=== PATIENT | female | born 1990 | race Caucasian/White ===

== ENCOUNTER 2017-01-22 16:08 | Emergency (ER) | payer OTHER ==
[2017-01-22 16:30] VITALS: BP 107/63
--- NOTE | 2017-01-22 16:44 | UC ---
Complaint Female HPI - HPI Summary HPI Summary: 26 year old female presents with complains of burning with urination, frequent urination and urgency. - History Of Current Complaint Chief Complaint: UCGU Stated Complaint: URINARY Time Seen by Provider: 01/22/17 16:40 Hx Last Menstrual Period: doesn't get - on OCP - Allergies/Home Medications Allergies/Adverse Reactions: Allergies Allergy/AdvReac Type Severity Reaction Status Date / Time No Known Allergies Allergy Verified 01/22/17 16:26 PMH/Surg Hx/FS Hx/Imm Hx - Surgical History Surgical History: None - Family History Known Family History: Positive: Unknown - Social History Alcohol Use: Occasionally Substance Use Type: None Smoking Status (MU): Never Smoked Tobacco Review of Systems Constitutional: Negative Skin: Negative Eyes: Negative ENT: Negative Respiratory: Negative Cardiovascular: Negative Gastrointestinal: Negative Genitourinary: Dysuria, Frequency, Urgency Motor: Negative Neurovascular: Negative Musculoskeletal: Negative Neurological: Negative Psychological: Negative All Other Systems Reviewed And Are Negative: Yes Physical Exam Triage Information Reviewed: Yes Vital Signs: Initial Vital Signs Temp 37.0 C 01/22/17 16:27 Pulse 63 01/22/17 16:27 Resp 16 01/22/17 16:27 BP 107/63 01/22/17 16:27 Pulse Ox 100 01/22/17 16:27 Eye Exam: Normal ENT Exam: Normal Dental Exam: Normal Neck exam: Normal Neck: Positive: 1 Respiratory Exam: Normal Cardiovascular Exam: Normal Abdominal Exam: Normal Musculoskeletal Exam: Normal Neurological Exam: Normal Psychological Exam: Normal Skin Exam: Normal Complaint Female Dx - Differential Dx/Diagnosis Provider Diagnoses: dysuria Discharge - Discharge Plan Condition: Stable Disposition: HOME Prescriptions: Phenazopyridine 200 mg (NF) [Pyridium 200 MG tab] 200 mg PO TID #9 tab Sulfamethox/Trimethoprim DS* [Bactrim DS 800/160 TAB*] 1 tab PO BID #14 tab Patient Education Materials: Urinary Tract Infection in Women (ED) Referrals: LELAND Henson [Primary Care Provider] -
== END 2017-01-22 16:48 | disposition home or self-care (01) ==
LOC: UCCORT 16:08
DX: R30.0 Dysuria (principal)
CPT/HCPCS: 81003; 87086; 99212; G0463

== ENCOUNTER 2017-12-15 17:45 | Emergency (ER) | payer OTHER ==
--- NOTE | 2017-12-15 17:58 | UC ---
Hand/Wrist HPI - HPI Summary HPI Summary: L 4th finger caught in a dog leash, heard it crack. 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 Alleviating Factor(s): Nothing <Rosmery Obando - Last Filed: 12/15/17 18:48> <Itzel Anderson - Last Filed: 12/15/17 18:50> - History Of Current Complaint Stated Complaint: LEFT FINGER INJURY Time Seen by Provider: 12/15/17 17:50 - Allergies/Home Medications Allergies/Adverse Reactions: Allergies Allergy/AdvReac Type Severity Reaction Status Date / Time No Known Allergies Allergy Verified 01/22/17 16:26 PMH/Surg Hx/FS Hx/Imm Hx Previously Healthy: Yes - Surgical History Surgical History: None - Family History Known Family History: Positive: Unknown - Social History Occupation: Employed Full-time Lives: With Family Alcohol Use: Occasionally Substance Use Type: None Smoking Status (MU): Never Smoked Tobacco - Immunization History Vaccination Up to Date: Yes <Rosmery Obando - Last Filed: 12/15/17 18:48> Review of Systems Constitutional: Negative Skin: Negative Eyes: Negative ENT: Negative Respiratory: Negative Cardiovascular: Negative Gastrointestinal: Negative Genitourinary: Negative Motor: Negative Neurovascular: Negative Musculoskeletal: Other: - pain/swelling L 4th finger Neurological: Negative Psychological: Negative Is Patient Immunocompromised?: No All Other Systems Reviewed And Are Negative: Yes <Rosmery Obando - Last Filed: 12/15/17 18:48> Physical Exam Triage Information Reviewed: Yes Appearance: Well-Appearing Eyes: Positive: Conjunctiva Clear ENT: Positive: Normal ENT inspection Neck: Positive: Supple Respiratory: Positive: Lungs clear, Normal breath sounds Cardiovascular: Positive: RRR, No Murmur Abdomen Description: Positive: Nontender, No Organomegaly, Soft Bowel Sounds: Positive: Present Musculoskeletal: Positive: Other: - L hand: 4th finger tender and swollen, s/v intact. refusing to move it due to pain. rest of hand is atraumatic. Neurological: Positive: Alert Psychological: Positive: Age Appropriate Behavior Skin Exam: Normal <Rosmery Obando - Last Filed: 12/15/17 18:48> Vital Signs: Initial Vital Signs Temp 99.9 F 12/15/17 17:52 Pulse 80 12/15/17 17:52 Resp 15 12/15/17 17:52 BP 120/61 12/15/17 17:52 Pulse Ox 100 12/15/17 17:52 <Itzel Anderson - Last Filed: 12/15/17 18:50> Diagnostics - Radiology No standard instances Radiology Interpretation Completed By: Radiologist - comminutes/spiral fx l 4th proximal phalanx <Rosmery Obando - Last Filed: 12/15/17 18:48> Hand/Wrist Course/Dx - Course Course Of Treatment: Procedure: volar fiberglass splint L hand, areas above and below fx immobilized. s/v to finger tips intact post splint. - Differential Dx/Diagnosis Provider Diagnoses: Fracture left 4th proximal phalanx <Rosmery Obando - Last Filed: 12/15/17 18:48> Discharge - Sign-Out/Discharge Documenting (check all that apply): Discharge/Admit/Transfer - Billing Disposition and Condition Condition: STABLE Disposition: HOME <Rosmery Obando - Last Filed: 12/15/17 18:48> - Billing Disposition and Condition Condition: STABLE Disposition: HOME <Itzel Anderson - Last Filed: 12/15/17 18:50> - Discharge Plan Condition: Stable Disposition: HOME Patient Education Materials: Finger Fracture (ED), Splint Care (ED) Referrals: LELAND Henson [Primary Care Provider] - If Needed Anisha Flores MD [Medical Doctor] - As Soon As Possible Additional Instructions: call orthopedics Sunday am. advise you hand been told to see the hand specialist for a comminuted spiral fracture of your finger. keep splint on at all times. Attestation Statement User Type: Provider - I was available for consult. This patient was seen by the EF[facility]. The patient was not presented to, seen by, or examined by me. -Sammie <Itzel Anderson - Last Filed: 12/15/17 18:50>
[2017-12-15 17:59] VITALS: BP 120/61
[2017-12-15] MEDS ORDERED: Ibuprofen ADULT LIQ* 600 MG/30 ML UDC PO ONE (18:03)
--- NOTE | 2017-12-15 18:45 | RAD ---
INDICATION: Pain at the proximal phalanx of the left ring finger after "left ring finger caught in dog leash today" COMPARISON: None. TECHNIQUE: 3 views of the left ring finger were obtained. FINDINGS: There is a comminuted, slightly spiral fracture involving the proximal phalanx of the left ring finger. Remaining visualized bones are intact and appropriately aligned. IMPRESSION: FRACTURED PROXIMAL PHALANX OF THE LEFT RING FINGER.
== END 2017-12-15 18:58 | disposition home or self-care (01) ==
LOC: UCCORT 17:45
DX: S62.615 Displaced fracture of proximal phalanx of left ring finger (principal); W23.0XXA Caught, crushed, jammed, or pinched between moving objects, initial encounter; Y93.9 Activity, unspecified; Y92.9 Unspecified place or not applicable
CPT/HCPCS: 26720; 73140; 99212; A9270-GY; G0463

== ENCOUNTER 2017-12-25 09:14 | Day surgery (SDC) | payer OTHER ==
--- NOTE | 2017-12-21 07:20 | HP ---
PREOPERATIVE HISTORY AND PHYSICAL: DATE OF SURGERY/ADMISSION: 12/25/17 [facility] DATE OF OFFICE VISIT/ENCOUNTER: 12/20/17 ATTENDING SURGEON: Anisha Flores MD * (DICTATED BY KEAGAN AVALOS) PROCEDURE: Left ring finger phalanx closed reduction and percutaneous pinning. CHIEF COMPLAINT: Left ring finger fracture after injury. HISTORY OF PRESENT ILLNESS: This is a 27-year-old female who sustained injury to her left ring finger on 12/15/17. She was walking her dog and got the leash wrapped around her finger and the dog pulled away. She suffered a fracture of her ring finger proximal phalanx. She was seen at [facility] the day of injury and had an x-ray, which shows a displaced fracture of the proximal phalanx. She has not taken any medication for this problem. She denies any associated numbness or tingling and denies any other injury. After evaluation by Dr. Flores and review of x-rays, it has been recommended that she undergo surgical intervention for best outcome and she has consented to proceed with left ring finger closed reduction and percutaneous pinning. PAST MEDICAL HISTORY: Unremarkable. PAST SURGICAL HISTORY: [place] teeth extraction. MEDICATIONS: Loestrin Fe 1 mg-10 mcg/10 mcg one every day. ALLERGIES: No known drug allergies. FAMILY MEDICAL HISTORY: Heart disease and breast cancer. SOCIAL HISTORY: The patient is employed as a real estate investment analyst. She denies smoking and recreational drug use. She does drink alcohol on occasion. REVIEW OF SYSTEMS: General: Negative for fevers, chills, night sweats, unexplained weight loss or gain. No known anesthesia problems. HEENT: Negative for headache, lightheadedness, syncopal episodes, visual changes. Integumentary: Negative for abrasions, lesions, or open wounds. Cardiothoracic : Negative for hypertension, chest pain, palpitations, edema. Respiratory: Negative for shortness of breath with exertion, chronic cough, wheezing. GI: Negative for nausea, vomiting, diarrhea, constipation, GERD. : Negative for nocturia, urinary frequency, urgency, history of UTIs, or kidney problems. Musculoskeletal: Positive for current complaint. Neurological: Negative for paresthesias, numbness, history of seizure, stroke, poor balance. Endocrine: Negative for diabetes and thyroid issues. Hematologic: Negative for easy bruising, anemia, bleeding disorders, or history of DVT. Infectious Disease: Negative for history of MRSA, hepatitis C, or HIV. PHYSICAL EXAMINATION GENERAL: Well-developed, well-nourished 27-year-old female, in no acute distress. VITAL SIGNS: Height 5 feet 5 inches, weight 125 pounds, blood pressure 112/68. HEENT: Normocephalic, atraumatic. Pupils are equal, round, and reactive to light and accommodation. Extraocular movements are intact. Throat is clear. NECK: Supple. No palpable lymph nodes. PULMONARY: Lungs are clear to auscultation bilaterally. No wheezes, rales, or rhonchi. CARDIOVASCULAR: Regular rate and rhythm. S1, S2. No murmurs, rubs, or gallops. No edema. ABDOMEN: Positive bowel sounds, soft, nontender. NEUROLOGICAL: Alert and oriented x3. Cranial nerves II through XII are intact. Sensation is intact to light touch. MUSCULOSKELETAL: On exam of her left hand, there is significant ecchymosis on the ulnar aspect of her hand with swelling. Her ring finger has significant deformity both rotational and angular that is amplified with flexion of the finger. Skin is intact. Neurovascular function is intact. IMAGING STUDIES: X-rays AP, lateral and oblique of the left ring finger showed a comminuted fracture of the proximal phalanx with some displacement on the AP view. IMPRESSION: Left ring finger proximal phalanx fracture. PLAN: The patient is scheduled to undergo a left ring finger phalanx closed reduction and percutaneous pinning with Dr. Flores on 12/25/17. She will return to the office in 10 to 14 days postop for followup and suture removal. Prescription for Chaplin was e-scribed to the patient's pharmacy for postoperative pain management. KEAGAN AVALOS [id number]/[facility] #: [id number] SLAVA
[~2017-12-25 09:14] MED LIST: Buffered Lidocaine 0.9% SYRIN* 5 ML/SYR SYRINGE INTRADERM ONE
[2017-12-25] MEDS ORDERED: ceFAZolin 2 GM PREMIX (*) 2 GM/50 ML BAG IVPB ONE (09:26)
[2017-12-25] MEDS ORDERED: fentaNYL* 50 MCG/ML 2 ML VIAL (100 MCG VIAL) ONE (09:55)
[2017-12-25] MEDS ORDERED: Propofol* 10 MG/ML 20 ML BTL IV PUSH ONE (09:55)
[2017-12-25] MEDS ORDERED: Ketorolac INJ* 30 MG/ML 1 ML VIAL ONE (09:55)
[2017-12-25] MEDS ORDERED: Midazolam* 1 MG/ML 2 ML VIAL (2 MG) ONE (09:55)
[2017-12-25] MEDS ORDERED: Naloxone* 0.4 MG/ML 1 ML VIAL IV PRN (10:39)
[2017-12-25] MEDS ORDERED: Acetaminophen TAB* 325 MG PO PRN (10:39)
[2017-12-25] MEDS ORDERED: oxyCODONE TAB* 5 MG TAB PO PRN (10:39)
[2017-12-25] MEDS ORDERED: Ondansetron INJ* 2 MG/ML VIAL IV PRN (10:39)
[2017-12-25] MEDS ORDERED: fentaNYL* 50 MCG/ML 2 ML VIAL (100 MCG VIAL) IV PRN (10:39)
[2017-12-25] MEDS ORDERED: HYDROmorphone INJ* 1 MG/ML CARPUJECT SYRINGE IV PRN (10:39)
[2017-12-25] MEDS ORDERED: oxyCODONE/Acetamin 5/325 MG* TAB PO PRN (10:39)
[2017-12-25] MEDS ORDERED: PROCHLORPERAZINE INJ 5 MG/ML 2 ML VIAL IV PRN (10:39)
[2017-12-25] MEDS ORDERED: Ibuprofen TAB* 400 MG PO PRN (10:39)
[2017-12-25] MEDS ORDERED: Lidocaine 1% INJ* 10 MG/ML 30 ML SDV ONE (10:43)
[2017-12-25 11:38] VITALS: BP 107/58
--- NOTE | 2017-12-26 06:13 | OP ---
DATE OF OPERATION: 12/25/17 [facility] DATE OF : 89. SURGEON: Anisha Flores MD. BEATER ROOM SUPERVISOR: KEAGAN Barksdale. ANESTHESIA: Local MAC. PRE-OP DIAGNOSIS: Comminuted fracture of the left ring finger proximal phalanx with angulation. POST-OP DIAGNOSIS: Comminuted fracture of the left ring finger proximal phalanx with angulation. OPERATIVE PROCEDURE: Closed reduction, pinning left ring finger proximal phalanx. ESTIMATED BLOOD LOSS: Zero. INDICATIONS FOR PROCEDURE: Digna is a 27-year-old female who injured her ring finger while walking her dog; the leash caught on her finger and the dog pulled , and she suffered a comminuted fracture of the proxima phalanx. She has significant angular deformity towards the middle finger. She presents for closed reduction and pinning. DESCRIPTION OF PROCEDURE: The patient was brought to the operating room, was given a sedation anesthetic and a digital block with 10 cc of 1% plain lidocaine. The skin of his left hand and forearm was prepped and draped in the usual sterile fashion. The finger was manipulated and the fracture was reduced. With the finger held straight with traction by the surgical scheduler , four 0.035-inch K-wires were driven through the butterfly fragment, two into distal fragment and two into the proximal fragment. The position of the hardware and fracture fragments were checked on the C-arm in the AP and lateral views and found to be satisfactory. Additionally, the finger was now clinically straight, but she does have a slight angular deformity at the her DIP joint, not associated with this injury. The pins were cut and then dressed with Xeroform, 4x4s, lots of padding, and namita tapes to the small finger and she was placed into an ulnar gutter splint. The patient tolerated the procedure well and was brought to the recovery room in good condition. [id number]/[facility] #: [id number] MTDD
--- NOTE | 2017-12-26 11:36 | RAD ---
INDICATION: ORIF LEFT fourth proximal phalanx. Technique: 1 minute 52 seconds of?fluoroscopy?was provided?for the physician proceduralist. REPORT: Spot images document percutaneous fixation pins traversing the nonarticular fracture of the fourth proximal phalanx resulting anatomic alignment. IMPRESSION: Procedural control films. CPT II Codes: G9500
== END 2017-12-25 10:30 | disposition home or self-care (01) ==
LOC: OREAST 09:14
PROVIDERS: ATTEND Orthopaedic Surgery
DX: S62.615A Displaced fracture of proximal phalanx of left ring finger, initial encounter for closed fracture (principal); K58.9 Irritable bowel syndrome, unspecified; F41.9 Anxiety disorder, unspecified; W22.8XXA Striking against or struck by other objects, initial encounter; Y93.89 Activity, other specified; Y92.89 Other specified places as the place of occurrence of the external cause
CPT/HCPCS: 76000; 81025; C1776; J0690; J1885; J2250; J2704; J3010